=== PATIENT | male | born 1955 | race Caucasian/White ===

== ENCOUNTER → 2017-07-15 | Outpatient (CLI) | payer MEDICARE, MEDICAID ==
[~2017-07-15] MED LIST: ASPIRIN 81MG TA81 MG PO; CARVEDILOL 25MG25 MG PO; CARVEDILOL6.25 MG PO; CIPROFLOXACIN750 MG PO; ENTRESTO 49 MG1 EACH PO; GENTAMICIN O5 ML/BOT OP; HYDROCHLOROTHIA25 M1 PO; KETOROLAC0.03 ML/DR OP; LEVAQUIN500 MG PO; LIPITOR40 MG PO; NITROGLYCERIN0.4 MG SL; PHENAZOPYRIDIN200 M1 PO; QUINAPRIL20 MG PO; TESSALON PERLE100 M1 PO; TYLENOL 8 HOUR650 MG PO; WARFARIN SOD5 MG PO; WARFARIN SODIUM5 MG PO
[2017-07-15 12:10] LABS: BUN 22 mg/dL (7-18)
[2017-07-15 12:20] LABS: GFR (ESTIMATED) 76 ML/MIN (>60)
== END ==
LOC: LAB 10:11
PROVIDERS: Internal Medicine Cardiovascular Disease
DX: R00.2 Palpitations (principal); I50.9 Heart failure, unspecified

== ENCOUNTER → 2017-09-16 | Outpatient (CLI) | payer MEDICARE, MEDICAID | LOC: LAB 13:31 | DX: I82.409 Acute embolism and thrombosis of unspecified deep veins of unspecified lower extremity (principal) ==